=== PATIENT | female | born 1985 | race Caucasian/White ===

== ENCOUNTER 2023-08-27 11:50 | Outpatient (CLI) | payer OTHER, SELFPAY | END 2023-08-27 11:51 | disposition home or self-care (01) | LOC: NFLDREF 08-28 11:04 | PROVIDERS: PCP Family Medicine; Referring Provider Family Medicine; Visit Provider Family Medicine | DX: Z00.00 Encounter for general adult medical examination without abnormal findings (principal); E78.00 Pure hypercholesterolemia, unspecified; R53.83 Other fatigue | CPT/HCPCS: 80053; 80061 ==

== ENCOUNTER 2025-04-22 10:23 | Outpatient (CLI) | payer OTHER, SELFPAY | END 2025-04-22 10:24 | disposition home or self-care (01) | PROVIDERS: PCP Nurse Practitioner Family; Visit Provider Nurse Practitioner Family | DX: E78.00 Pure hypercholesterolemia, unspecified (principal); F32.A Depression, unspecified; Z13.1 Encounter for screening for diabetes mellitus; Z13.21 Encounter for screening for nutritional disorder | CPT/HCPCS: 80053; 80061; 82306; 85025 ==